=== PATIENT | female | born 1970 | race Caucasian/White ===

== ENCOUNTER 2017-06-13 10:23 | Emergency (ER) | payer OTHER, BC ==
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
[2017-06-13 10:42] VITALS: BP 140/90; PULSE 75; TEMP 97.5; BMI 29.2
[2017-06-13] MEDS ORDERED: ONDANSETRON *ODT* 4 MG TABLET SL ONE (10:42)
[2017-06-13] MEDS ORDERED: ONDANSETRON *ODT* 4 MG TABLET ONE (10:54)
== END 2017-06-13 13:17 | disposition home or self-care (01) ==
LOC: JER 10:23
DX: R51 Headache (principal); W18.39XA Other fall on same level, initial encounter; Y93.89 Activity, other specified; Y92.410 Unspecified street and highway as the place of occurrence of the external cause
CPT/HCPCS: 70450-TC; 84703; 99281-25

== ENCOUNTER 2023-01-02 12:16 | Emergency (ER) | payer BC, OTHER ==
[2023-01-02 12:46] VITALS: TEMP 97.9; BMI 25.5
[2023-01-02] MEDS ORDERED: DEXAMETHASONE 4 MG TABLET (FP) PO ONE (12:54)
[2023-01-02] MEDS ORDERED: DEXAMETHASONE 4 MG TABLET (FP) ONE (12:58)
[2023-01-02 14:45] VITALS: PULSE 96; RESP 18
[2023-01-02 14:51] VITALS: BP 113/60
== END 2023-01-02 14:52 | disposition home or self-care (01) ==
LOC: JER 12:16
DX: R07.0 Pain in throat (principal); R11.0 Nausea; R61 Generalized hyperhidrosis; T78.40XA Allergy, unspecified, initial encounter
CPT/HCPCS: 99283-25